=== PATIENT | male | born 1990 | race Caucasian/White ===

== ENCOUNTER 2023-08-23 23:32 | Emergency (ER) | payer OTHER ==
[~2023-08-23] VITALS: Ht 180.3 cm; Wt 77.9 kg
[2023-08-23] MEDS: NS 1,000 ML IV ONE (23:59)
[2023-08-24] MEDS ORDERED: ISOVUE-370 76% 100ML VIAL As Ordered ONE (00:12)
[2023-08-24 00:13] LABS: BLOOD UREA NITROGEN 22 MG/DL (9-23); CALCIUM LEVEL 8.8 MG/DL (8.5-10.1); CARBON DIOXIDE LEVEL 30 MMOL/L (20-31); CHLORIDE LEVEL 102 MMOL/L (98-107); CK-MB VALUE MASS 1.7 NG/ML (<3.6); CREATININE FOR GFR 0.88 MG/DL (0.70-1.30); GLOMERULAR FILTRATION RATE > 60.0 (>60); GLUCOSE, FASTING 118 MG/DL (60-100); MAGNESIUM LEVEL 1.8 MG/DL (1.8-2.4); POTASSIUM SERUM 4.4 MMOL/L (3.5-5.1); SODIUM LEVEL 136 MMOL/L (136-145)
[2023-08-24 00:15] LABS: BASO # 0.1 10^3/uL (0.0-0.2); BASO % 0.7 % (0.0-1.0); EOS # 0.2 10^3/uL (0.0-0.5); EOS % 2.4 % (0.0-3.0); HEMATOCRIT 39.5 % (42.0-52.0); HEMOGLOBIN 13.5 g/dl (13.5-17.5); LYMPH # 3.3 10^3/uL (1.5-5.0); LYMPH % 38.5 % (24.0-44.0); MEAN CORPUSCULAR HEMOGLOBIN 29.6 pg (27.0-33.0); MEAN CORPUSCULAR HGB CONC 34.2 g/dl (32.0-36.5); MEAN CORPUSCULAR VOLUME 86.6 fl (80.0-96.0); MONO # 0.6 10^3/uL (0.0-0.8); MONO % 6.8 % (2.0-8.0); NEUTROPHILS # 4.3 10^3/uL (1.5-8.5); NEUTROPHILS % 50.5 % (36.0-66.0); PLATELET COUNT, AUTOMATED 294 10^3/uL (150-450); RED BLOOD COUNT 4.56 10^6/uL (4.30-6.10); WHITE BLOOD COUNT 8.4 10^3/uL (4.0-10.0)
[2023-08-24 00:16] LABS: THYROID STIMULATING HORMONE 2.027 uIU/ML (0.55-4.78)
[2023-08-24 00:19] LABS: CPK CREATINE PHOSPHOKINASE 92 U/L (46-171); MB/CK RELATIVE INDEX 1.84 (< OR =4)
[2023-08-24 00:32] LABS: RSV AMPLIFICATION NEGATIVE (NEGATIVE)
[2023-08-24] MEDS: NS 1,000 ML IV ONE (02:47)
[2023-08-24] MEDS ORDERED: HOLTER MONITOR XX (04:43)
[2023-08-24 04:51] VITALS: BP 110/58; TEMP 98; O2SAT 95
[2023-08-24 04:58] LABS: AMPHETAMINES LEVEL URINE NEGATIVE (NEGATIVE); BARBITURATES URINE NEGATIVE (NEGATIVE); BENZODIAZEPINES URINE NEGATIVE (NEGATIVE); COCAINE METABOLITE URINE NEGATIVE (NEGATIVE); METHADONE URINE NEGATIVE (NEGATIVE); OPIATES URINE NEGATIVE (NEGATIVE); PHENCYCLIDINE URINE NEGATIVE (NEGATIVE)
[2023-08-24 05:08] LABS: CANNABINOIDS URINE POSITIVE (NEGATIVE)
== END 2023-08-24 05:07 | disposition home or self-care (01) ==
LOC: M ED 23:32
DX: R55 Syncope and collapse (principal); D15.2 Benign neoplasm of mediastinum; S00.03XA Contusion of scalp, initial encounter; Y92.9 Unspecified place or not applicable; Y93.9 Activity, unspecified; Y99.9 Unspecified external cause status; I10 Essential (primary) hypertension; F17.210 Nicotine dependence, cigarettes, uncomplicated; F10.10 Alcohol abuse, uncomplicated
CPT/HCPCS: 70450; 70486; 71045; 71275; 72125; 80047; 80048; 80307; 82550; 82553; 83735; 84443; 85025; 87631; 93005; 93041; 94760; 96360; 96361; 99291; Q9967

== ENCOUNTER 2023-09-11 13:19 | Inpatient (IN) | payer OTHER ==
[~2023-09-11] VITALS: Ht 180.3 cm; Wt 78.5 kg
[~2023-09-11 13:19] MED LIST: HOLTER MONITOR XX
[2023-09-11] MEDS ORDERED: VYVA30CA4 PO (14:18)
[2023-09-11] MEDS ORDERED: GABA-282 (14:18)
[2023-09-11] MEDS ORDERED: PREG150C2 PO (14:18)
[2023-09-11] MEDS ORDERED: MULT-90 PO (14:18)
[2023-09-11] MEDS ORDERED: CLON0.5T2 PO (14:18)
[2023-09-11] MEDS ORDERED: MIRT1TAB PO (14:18)
[2023-09-11] MEDS ORDERED: VITA100093 PO (14:18)
[2023-09-11] MEDS ORDERED: METO1TAB32 (14:18)
[2023-09-11] MEDS ORDERED: BUPR75TA5 (14:18)
[2023-09-11] MEDS ORDERED: DULO1CAP4 PO (14:18)
[2023-09-11] MEDS ORDERED: TRAZ-252 (14:18)
[2023-09-11 14:51] LABS: BASO % 0.6 % (0.0-1.0); EOS # 0.1 10^3/uL (0.0-0.5); EOS % 1.7 % (0.0-3.0); HEMATOCRIT 38.8 % (42.0-52.0); HEMOGLOBIN 13.5 g/dl (13.5-17.5); LYMPH # 2.4 10^3/uL (1.5-5.0); LYMPH % 33.2 % (24.0-44.0); MEAN CORPUSCULAR HEMOGLOBIN 30.5 pg (27.0-33.0); MEAN CORPUSCULAR HGB CONC 34.8 g/dl (32.0-36.5); MEAN CORPUSCULAR VOLUME 87.8 fl (80.0-96.0); MONO # 0.8 10^3/uL (0.0-0.8); MONO % 11.1 % (2.0-8.0); NEUTROPHILS # 3.8 10^3/uL (1.5-8.5); NEUTROPHILS % 53.1 % (36.0-66.0); PLATELET COUNT, AUTOMATED 267 10^3/uL (150-450); RED BLOOD COUNT 4.42 10^6/uL (4.30-6.10); WHITE BLOOD COUNT 7.2 10^3/uL (4.0-10.0)
[2023-09-11] MEDS: GASTROGRAFIN SOLUTION 30ML PO SCH (14:54)
[2023-09-11 15:02] LABS: INR 1.08; PROTHROMBIN TIME 13.7 SECONDS (12.5-14.5)
[2023-09-11 15:11] LABS: C REACTIVE PROTEIN QUANTITATIV < 0.40 MG/DL (<1.0); ETHYL ALCOHOL (ETHANOL) 0.004 % (0.000-0.010); LIPASE 20 U/L (12-53)
[2023-09-11 15:13] LABS: ALBUMIN 4.1 G/DL (3.2-5.2); ALKALINE PHOSPHATASE 60 U/L (46-116); ALT/SGPT 26 U/L (7.0-40); AST/SGOT 31 U/L (<34); BILIRUBIN,DIRECT 0.3 MG/DL (<0.4); BILIRUBIN,TOTAL 0.9 MG/DL (0.3-1.2); BLOOD UREA NITROGEN 19 MG/DL (9-23); CALCIUM LEVEL 8.5 MG/DL (8.5-10.1); CARBON DIOXIDE LEVEL 30 MMOL/L (20-31); CHLORIDE LEVEL 102 MMOL/L (98-107); CK-MB VALUE MASS 5.6 NG/ML (<3.6); CREATININE FOR GFR 0.79 MG/DL (0.70-1.30); GLOMERULAR FILTRATION RATE > 60.0 (>60); GLUCOSE, FASTING 102 MG/DL (60-100); POTASSIUM SERUM 4.1 MMOL/L (3.5-5.1); SALICYLATE LEVEL < 3.0 MG/DL (<30); SODIUM LEVEL 137 MMOL/L (136-145); TOTAL PROTEIN 6.7 G/DL (5.7-8.2)
[2023-09-11 15:15] LABS: THYROID STIMULATING HORMONE 0.935 uIU/ML (0.55-4.78)
[2023-09-11] MEDS ORDERED: MED REC IN PROGRESS XX SCH (15:15)
[2023-09-11 15:20] LABS: CPK CREATINE PHOSPHOKINASE 349 U/L (46-171)
[2023-09-11] MEDS: MULTIVITAMIN -ADULT INJECTION 10 ML, THIAMINE INJection 100 MG, FOLIC ACID 1 MG in NS 1... IV ONE (15:31)
[2023-09-11] MEDS ORDERED: MULT400T10 PO (15:40)
[2023-09-11] MEDS ORDERED: HOME MED LIST COMPLETE! XX SCH (15:45)
[2023-09-11] MEDS ORDERED: ISOVUE-370 76% 100ML VIAL As Ordered ONE (16:20)
[2023-09-11 17:28] LABS: BARBITURATES URINE NEGATIVE (NEGATIVE); COCAINE METABOLITE URINE NEGATIVE (NEGATIVE); METHADONE URINE NEGATIVE (NEGATIVE)
[2023-09-11 17:29] LABS: BENZODIAZEPINES URINE NEGATIVE (NEGATIVE); OPIATES URINE NEGATIVE (NEGATIVE); PHENCYCLIDINE URINE NEGATIVE (NEGATIVE)
[2023-09-11 17:32] LABS: AMPHETAMINES LEVEL URINE POSITIVE (NEGATIVE); CANNABINOIDS URINE POSITIVE (NEGATIVE)
[2023-09-12] MEDS: IBUPROFEN 400MG TAB PO ONE (00:11)
[2023-09-12] MEDS: DULoxetine 20MG CAP (CYMBALTA) PO SCH (00:11)
[2023-09-12] MEDS: clonazePAM 0.5 MG TAB PO SCH (00:12)
[2023-09-12] MEDS ORDERED: MAALOX 30 ML SUSP *UDC PO PRN (11:00)
[2023-09-12] MEDS ORDERED: OLANZapine 5 MG TAB PO PRN (11:00)
[2023-09-12] MEDS ORDERED: MOM 30ML SUSPENSION UDC PO PRN (11:00)
[2023-09-12] MEDS ORDERED: diphenhydrAMINE 25MG CAP PO PRN (11:00)
[2023-09-12] MEDS ORDERED: ACETAMINOPHEN TAB 650MG DOSE (2X325MG) PO PRN (11:00)
[2023-09-12] MEDS: VITAMIN D 1,000 INTERNATIONAL UNITS TABLET PO SCH (17:15)
[2023-09-12] MEDS: NICOTINE 21MG/24HR 1 EA TRANSDERMAL TD SCH (17:16)
[2023-09-12] MEDS: LORazepam 1 MG TAB PO PRN (17:24)
[2023-09-12 21:24] VITALS: BP 138/76; TEMP 98.4; O2SAT 99
[2023-09-12] MEDS: traZODone 50 MG TAB PO PRN (21:46)
[2023-09-12] MEDS: MIRTAZAPINE 7.5MG PER 1/2 TABLET PO SCH (21:46)
[2023-09-13 06:18] VITALS: BP 114/60; TEMP 97; O2SAT 99
[2023-09-13] MEDS: IBUPROFEN 400MG TAB PO PRN (08:55)
[2023-09-13] MEDS: clonazePAM 0.5 MG TAB PO SCH (09:00)
[2023-09-13] MEDS: DULoxetine 20MG CAP (CYMBALTA) PO SCH (09:19)
[2023-09-13] MEDS: PANTOPRAZOLE 40MG TAB (PROTONIX) PO SCH (12:27)
[2023-09-13 15:47] VITALS: BP 135/87; TEMP 98.3; O2SAT 100
[2023-09-14 06:10] VITALS: BP 129/67; TEMP 98.9; O2SAT 99
[2023-09-14] MEDS ORDERED: VITA100093 PO (11:09)
[2023-09-14] MEDS ORDERED: DULO1CAP4 PO (11:09)
[2023-09-14] MEDS ORDERED: MIRT1TAB PO (11:09)
[2023-09-14] MEDS ORDERED: MULT-90 PO (11:09)
[2023-09-14 14:40] VITALS: BP 123/87; TEMP 97.2; O2SAT 99
== END 2023-09-14 15:41 | disposition home or self-care (01) | DRG 751 ==
LOC: M ED 13:19 → M ED INP 09-12 11:00 → M PSY 09-12 20:44
PROVIDERS: ADMIT Student in an Organized Health Care Education/Training Program; ATTEND Student in an Organized Health Care Education/Training Program
DX: F29 Unspecified psychosis not due to a substance or known physiological condition (principal); F15.150 Other stimulant abuse with stimulant-induced psychotic disorder with delusions; R45.851 Suicidal ideations; F90.9 Attention-deficit hyperactivity disorder, unspecified type; F17.200 Nicotine dependence, unspecified, uncomplicated; F19.10 Other psychoactive substance abuse, uncomplicated; K21.9 Gastro-esophageal reflux disease without esophagitis; R22.2 Localized swelling, mass and lump, trunk; Z56.0 Unemployment, unspecified; Z63.0 Problems in relationship with spouse or partner; Z63.8 Other specified problems related to primary support group; Z79.899 Other long term (current) drug therapy

== ENCOUNTER → 2023-10-15 | Outpatient (CLI) | payer OTHER ==
[~2023-10-15] MED LIST changes: +BUPR75TA5; +CLON0.5T2 PO; +DULO1CAP4 PO; +GABA-282; +METO1TAB32; +MIRT1TAB PO; +MULT-90 PO; +MULT400T10 PO; +PREG150C2 PO; +TRAZ-252; +VITA100093 PO; +VYVA30CA4 PO
[2023-10-15 15:46] LABS: BASO # 0.1 10^3/uL (0.0-0.2); BASO % 0.7 % (0.0-1.0); EOS # 0.4 10^3/uL (0.0-0.5); EOS % 3.3 % (0.0-3.0); HEMOGLOBIN 17.8 g/dl (13.5-17.5); LYMPH # 3.2 10^3/uL (1.5-5.0); LYMPH % 25.7 % (24.0-44.0); MEAN CORPUSCULAR HEMOGLOBIN 29.5 pg (27.0-33.0); MEAN CORPUSCULAR VOLUME 89.6 fl (80.0-96.0); MONO # 0.7 10^3/uL (0.0-0.8); MONO % 5.7 % (2.0-8.0); NEUTROPHILS % 63.7 % (36.0-66.0); PLATELET COUNT, AUTOMATED 306 10^3/uL (150-450); RED BLOOD COUNT 6.03 10^6/uL (4.30-6.10); WHITE BLOOD COUNT 12.6 10^3/uL (4.0-10.0)
[2023-10-15 16:20] LABS: FREE T4 0.92 NG/DL (0.89-1.76)
[2023-10-15 16:21] LABS: THYROID STIMULATING HORMONE 2.349 uIU/ML (0.55-4.78)
[2023-10-15 17:58] LABS: ALBUMIN 3.8 G/DL (3.2-5.2); ALKALINE PHOSPHATASE 79 U/L (46-116); ALT/SGPT 31 U/L (7.0-40); AST/SGOT 19 U/L (<34); BILIRUBIN,TOTAL 0.3 MG/DL (0.3-1.2); BLOOD UREA NITROGEN 20 MG/DL (9-23); CALCIUM LEVEL 9.5 MG/DL (8.5-10.1); CARBON DIOXIDE LEVEL 34 MMOL/L (20-31); CHLORIDE LEVEL 103 MMOL/L (98-107); CREATININE FOR GFR 0.92 MG/DL (0.70-1.30); GLOMERULAR FILTRATION RATE > 60.0 (>60); GLUCOSE, FASTING 86 MG/DL (60-100); POTASSIUM SERUM 4.7 MMOL/L (3.5-5.1); SODIUM LEVEL 142 MMOL/L (136-145); TOTAL PROTEIN 7.3 G/DL (5.7-8.2)
== END ==
LOC: M PLALAB 14:34
PROVIDERS: ATTEND Nurse Practitioner Family
DX: R79.89 Other specified abnormal findings of blood chemistry (principal)

== ENCOUNTER 2023-11-03 14:59 | Emergency (ER) | payer OTHER ==
[~2023-11-03] VITALS: Ht 180.3 cm; Wt 77.8 kg
[2023-11-03 16:03] LABS: BASO % 0.1 % (0.0-1.0); EOS # 0.4 10^3/uL (0.0-0.5); EOS % 2.6 % (0.0-3.0); HEMATOCRIT 42.5 % (42.0-52.0); HEMOGLOBIN 14.9 g/dl (13.5-17.5); LYMPH # 1.1 10^3/uL (1.5-5.0); LYMPH % 7.9 % (24.0-44.0); MEAN CORPUSCULAR HEMOGLOBIN 30.1 pg (27.0-33.0); MEAN CORPUSCULAR HGB CONC 35.1 g/dl (32.0-36.5); MEAN CORPUSCULAR VOLUME 85.9 fl (80.0-96.0); MONO # 0.9 10^3/uL (0.0-0.8); MONO % 6.4 % (2.0-8.0); NEUTROPHILS % 82.7 % (36.0-66.0); PLATELET COUNT, AUTOMATED 268 10^3/uL (150-450); RED BLOOD COUNT 4.95 10^6/uL (4.30-6.10); WHITE BLOOD COUNT 14.5 10^3/uL (4.0-10.0)
[2023-11-03] MEDS: NS 1,000 ML IV ONE ×2 (16:12→17:28)
[2023-11-03] MEDS: ONDANSETRON 4MG 2ML VIAL IV ONE (16:13)
[2023-11-03 16:33] LABS: ALBUMIN 3.6 G/DL (3.2-5.2); BILIRUBIN,DIRECT 0.2 MG/DL (<0.4); BILIRUBIN,TOTAL 0.4 MG/DL (0.3-1.2); CK-MB VALUE MASS 3.9 NG/ML (<3.6); TOTAL PROTEIN 6.1 G/DL (5.7-8.2)
[2023-11-03 16:35] LABS: MB/CK RELATIVE INDEX 1.82 (< OR =4)
[2023-11-03 17:56] VITALS: TEMP 97
[2023-11-03 19:01] LABS: BARBITURATES URINE NEGATIVE (NEGATIVE); BENZODIAZEPINES URINE NEGATIVE (NEGATIVE); METHADONE URINE NEGATIVE (NEGATIVE); OPIATES URINE NEGATIVE (NEGATIVE); PHENCYCLIDINE URINE NEGATIVE (NEGATIVE)
[2023-11-03 19:04] LABS: AMPHETAMINES LEVEL URINE POSITIVE (NEGATIVE); CANNABINOIDS URINE POSITIVE (NEGATIVE); COCAINE METABOLITE URINE POSITIVE (NEGATIVE)
[2023-11-03] MEDS ORDERED: IBUP-1114 PO (23:13)
[2023-11-03] MEDS ORDERED: NICO1DIS12 PO (23:13)
[2023-11-03] MEDS ORDERED: HYDR-3363 PO (23:13)
[2023-11-03] MEDS ORDERED: HOME MED LIST COMPLETE! XX SCH (23:20)
[2023-11-04 02:00] VITALS: BP 110/66
[2023-11-04] MEDS: ONDANSETRON 4MG 2ML VIAL IV ONE (02:35)
[2023-11-04 02:45] VITALS: O2SAT 82
== END 2023-11-04 03:02 | disposition home or self-care (01) ==
LOC: M ED 14:59
DX: F19.10 Other psychoactive substance abuse, uncomplicated (principal); F17.210 Nicotine dependence, cigarettes, uncomplicated; F12.10 Cannabis abuse, uncomplicated; Z79.899 Other long term (current) drug therapy; Z79.810 Long term (current) use of selective estrogen receptor modulators (SERMs)
CPT/HCPCS: 51702; 80047; 80076; 80307; 81001; 82550; 82553; 83605; 83690; 84484; 85025; 87486; 87581; 87633; 87798; 93005; 96361; 96374; 96376; 99285; J2405

== ENCOUNTER 2024-01-20 13:31 | Emergency (ER) | payer OTHER ==
[~2024-01-20 13:31] MED LIST changes: +DULO1CAP6 PO; +GABA-282 PO; +HYDR-3363 PO; +IBUP-1114 PO; +NICO1DIS12 PO
[2024-01-20 14:23] LABS: VENOUS BASE EXCESS -1.7 (-2.0-2.0); VENOUS HCO3 24.2 MMOL/L (23.0-27.0); VENOUS O2 SATURATION 76.8 % (60.0-80.0); VENOUS PARTIAL PRESSURE CO2 45.4 mmHg (38.0-50.0); VENOUS PARTIAL PRESSURE O2 44.2 mmHg (30.0-50.0); VENOUS PH 7.345 UNITS (7.330-7.430); VENOUS STANDARD HCO3 22.5 MMOL/L; VENOUS TOTAL CO2 25.6 MMOL/L (24.0-28.0)
[2024-01-20 14:26] LABS: BASO % 0.3 % (0.0-1.0); EOS # 0.1 10^3/uL (0.0-0.5); EOS % 0.5 % (0.0-3.0); HEMATOCRIT 42.5 % (42.0-52.0); HEMOGLOBIN 14.7 g/dl (13.5-17.5); LYMPH # 1.5 10^3/uL (1.5-5.0); LYMPH % 14.9 % (24.0-44.0); MEAN CORPUSCULAR HGB CONC 34.6 g/dl (32.0-36.5); MEAN CORPUSCULAR VOLUME 83.8 fl (80.0-96.0); MONO # 0.5 10^3/uL (0.0-0.8); MONO % 4.6 % (2.0-8.0); NEUTROPHILS # 7.8 10^3/uL (1.5-8.5); NEUTROPHILS % 79.3 % (36.0-66.0); PLATELET COUNT, AUTOMATED 272 10^3/uL (150-450); RED BLOOD COUNT 5.07 10^6/uL (4.30-6.10); WHITE BLOOD COUNT 9.9 10^3/uL (4.0-10.0)
[2024-01-20 14:53] LABS: CK-MB VALUE MASS 1.5 NG/ML (<3.6)
[2024-01-20 14:55] LABS: ALBUMIN 3.9 G/DL (3.2-5.2); ALKALINE PHOSPHATASE 81 U/L (46-116); ALT/SGPT 44 U/L (7.0-40); AST/SGOT 22 U/L (<34); BILIRUBIN,DIRECT 0.2 MG/DL (<0.4); BILIRUBIN,TOTAL 0.5 MG/DL (0.3-1.2); BLOOD UREA NITROGEN 19 MG/DL (9-23); CALCIUM LEVEL 9.4 MG/DL (8.5-10.1); CARBON DIOXIDE LEVEL 28 MMOL/L (20-31); CHLORIDE LEVEL 103 MMOL/L (98-107); CPK CREATINE PHOSPHOKINASE 94 U/L (46-171); CREATININE FOR GFR 0.68 MG/DL (0.70-1.30); GLOMERULAR FILTRATION RATE > 60.0 (>60); GLUCOSE, FASTING 104 MG/DL (60-100); MB/CK RELATIVE INDEX 1.59 (< OR =4); POTASSIUM SERUM 4.4 MMOL/L (3.5-5.1); SODIUM LEVEL 138 MMOL/L (136-145); TOTAL PROTEIN 6.9 G/DL (5.7-8.2)
[2024-01-20 14:57] LABS: THYROID STIMULATING HORMONE 0.935 uIU/ML (0.55-4.78)
[2024-01-20] MEDS ORDERED: ISOVUE-370 76% 100ML VIAL As Ordered ONE (15:16)
[2024-01-20 16:48] VITALS: BP 109/75; TEMP 97.5; O2SAT 96
== END 2024-01-20 17:33 | disposition home or self-care (01) ==
LOC: M ED 13:31 → EDBD 13:31 → M ED 17:33
DX: U07.1 COVID-19 (principal); F41.9 Anxiety disorder, unspecified; F32.A Depression, unspecified; F17.210 Nicotine dependence, cigarettes, uncomplicated; F12.10 Cannabis abuse, uncomplicated; Z91.040 Latex allergy status; Z79.1 Long term (current) use of non-steroidal anti-inflammatories (NSAID); Z79.899 Other long term (current) drug therapy
CPT/HCPCS: 36415; 71045; 71275; 80048; 80076; 82550; 82553; 82803; 83605; 84443; 84484; 85025; 87040; 87486; 87581; 87633; 87798; 93005; 93041; 94760; 99285; Q9967

== ENCOUNTER → 2024-02-07 | Day surgery (SDC) | payer OTHER ==
[~2024-02-07] VITALS: Ht 180.3 cm; Wt 77.4 kg
[~2024-02-07] MED LIST changes: +SUBO8MIS SL; +TRAZ1TAB14 PO; +fentaNYL 100 MCG/2 ML INJECTION As Ordered ONE; +propofoL 200 MG/20 ML VIAL As Ordered ONE
[2024-02-07] MEDS: NS 1,000 ML IV ONE (12:38)
[2024-02-07 15:31] VITALS: TEMP 97.2
[2024-02-07 15:45] VITALS: BP 124/78; O2SAT 100
== END | disposition home or self-care (01) ==
LOC: M OPP 11:58
PROVIDERS: ATTEND Internal Medicine Gastroenterology
DX: K92.1 Melena (principal); R93.3 Abnormal findings on diagnostic imaging of other parts of digestive tract; K44.9 Diaphragmatic hernia without obstruction or gangrene; K20.90 Esophagitis, unspecified without bleeding; K22.2 Esophageal obstruction; Z79.1 Long term (current) use of non-steroidal anti-inflammatories (NSAID); Z79.891 Long term (current) use of opiate analgesic; Z79.899 Other long term (current) drug therapy; Z91.040 Latex allergy status
CPT/HCPCS: 43239; 45378; 88305; J3010

== ENCOUNTER 2024-03-09 16:01 | Emergency (ER) | payer OTHER ==
[~2024-03-09] VITALS: Ht 180.3 cm; Wt 86.1 kg
[~2024-03-09 16:01] MED LIST changes: -fentaNYL 100 MCG/2 ML INJECTION As Ordered ONE; -propofoL 200 MG/20 ML VIAL As Ordered ONE
[2024-03-09] MEDS ORDERED: CLEAPOW10 (16:23)
[2024-03-09] MEDS ORDERED: QUET50TA4 (16:23)
[2024-03-09] MEDS ORDERED: ACET500T15 PO (16:23)
[2024-03-09] MEDS ORDERED: OMEP-173 (16:23)
[2024-03-09] MEDS: ACETAMINOPHEN 325 MG TAB PO ONE (16:42)
[2024-03-09] MEDS: BUPRENORPHINE/NALOXONE 8-2MG SUBLINGUAL TABLET(SUBOXONE) SL ONE (18:53)
[2024-03-09 19:19] LABS: BASO # 0.1 10^3/uL (0.0-0.2); BASO % 0.3 % (0.0-1.0); EOS # 0.1 10^3/uL (0.0-0.5); EOS % 0.5 % (0.0-3.0); HEMATOCRIT 40.7 % (42.0-52.0); HEMOGLOBIN 14.2 g/dl (13.5-17.5); LYMPH # 1.8 10^3/uL (1.5-5.0); LYMPH % 9.3 % (24.0-44.0); MEAN CORPUSCULAR HEMOGLOBIN 29.7 pg (27.0-33.0); MEAN CORPUSCULAR HGB CONC 34.9 g/dl (32.0-36.5); MEAN CORPUSCULAR VOLUME 85.1 fl (80.0-96.0); MONO % 5.2 % (2.0-8.0); NEUTROPHILS % 84.3 % (36.0-66.0); PLATELET COUNT, AUTOMATED 232 10^3/uL (150-450); RED BLOOD COUNT 4.78 10^6/uL (4.30-6.10)
[2024-03-09 19:50] LABS: BLOOD UREA NITROGEN 13 MG/DL (9-23); CALCIUM LEVEL 9.3 MG/DL (8.5-10.1); CARBON DIOXIDE LEVEL 27 MMOL/L (20-31); CHLORIDE LEVEL 105 MMOL/L (98-107); CREATININE FOR GFR 0.85 MG/DL (0.70-1.30); GLOMERULAR FILTRATION RATE > 60.0 (>60); GLUCOSE, FASTING 102 MG/DL (60-100); POTASSIUM SERUM 4.6 MMOL/L (3.5-5.1); SODIUM LEVEL 136 MMOL/L (136-145)
[2024-03-09] MEDS: IBUPROFEN 600MG TAB PO ONE (20:18)
[2024-03-09] MEDS: DOXYCYCLINE HYCLATE 100MG TABLET PO ONE (20:44)
[2024-03-09] MEDS: NS 1,000 ML IV ONE (20:44)
[2024-03-09] MEDS: cefTRIAXone SOD 2 GM in D5W MINI-BAG PLUS 50 ML IV ONE (20:44)
[2024-03-09] MEDS ORDERED: NORCO, ANEXSIA 5/325MG TABLET (HYDROcodone/ACETAMINOPHEN) PO ONE (20:55)
[2024-03-09] MEDS ORDERED: DOXY-323 PO (21:05)
[2024-03-09] MEDS ORDERED: CEFD1CAP9 PO (21:05)
[2024-03-09 21:55] VITALS: BP 112/71; TEMP 97.4; O2SAT 99
== END 2024-03-09 22:02 | disposition home or self-care (01) ==
LOC: M ED 16:01
DX: J18.1 Lobar pneumonia, unspecified organism (principal); F43.10 Post-traumatic stress disorder, unspecified; F32.A Depression, unspecified; Z91.040 Latex allergy status; Z79.1 Long term (current) use of non-steroidal anti-inflammatories (NSAID); Z79.2 Long term (current) use of antibiotics; Z79.899 Other long term (current) drug therapy
CPT/HCPCS: 71250; 80048; 83605; 85025; 87040; 87486; 87581; 87633; 87798; 96374; 99284; J0696

== ENCOUNTER → 2024-03-10 | Outpatient (CLI) | payer OTHER ==
[~2024-03-10] MED LIST changes: +ACET500T15 PO; +CEFD1CAP9 PO; +CLEAPOW10; +DOXY-323 PO; +OMEP-173; +QUET50TA4
== END ==
LOC: M PLARAD 15:08
PROVIDERS: ATTEND Internal Medicine Medical Oncology
DX: C15.8 Malignant neoplasm of overlapping sites of esophagus (principal)
CPT/HCPCS: 78815; A9552